=== PATIENT | male | born 1955 | race American Indian/Alaskan Native ===

== ENCOUNTER 2017-05-14 01:03 | Emergency (ER) | payer OTHER ==
[~2017-05-14] VITALS: Ht 190.5 cm; Wt 113.4 kg
[2017-05-14] MEDS ORDERED: AMBIEN5 MG PO (01:26)
[2017-05-14] MEDS ORDERED: LIPITOR40 MG PO (01:27)
[2017-05-14] MEDS ORDERED: METOPROLOL SUCC25 MG PO (01:28)
[2017-05-14] MEDS ORDERED: NITROSTAT0.4 MG SL (01:29)
[2017-05-14] MEDS ORDERED: ASPIR 8181 MG PO (01:29)
[2017-05-14] MEDS ORDERED: PROTONIX40 MG PO (01:30)
[2017-05-14] MEDS ORDERED: INDOMETHACIN50 MG PO (01:31)
[2017-05-14] MEDS ORDERED: PLAVIX75 MG PO (01:31)
[2017-05-14] MEDS ORDERED: LISINOPRIL20 MG PO (01:31)
[2017-05-14] MEDS ORDERED: ATIVAN1 MG PO (01:33)
--- NOTE | 2017-05-14 18:29 | EKG ---
[facility] [address] [facility] [place] [address] Signed Normal sinus rhythm Cannot rule out Anterior infarct , age undetermined Abnormal ECG No previous ECGs available Confirmed by MAYDA JOHNSON MD ([id number]) on 05/14/2017 6:29:28 PM Electronically Signed By: MAYDA JOHNSON MD 05/14/17 1829 PATIENT NAME: CHARLINE PETTIT Electrocardiogram DATE OF : 51 PHYSICIAN: MAYDA JOHNSON MD REPORT #: [id number] REPORT IS CONFIDENTIAL AND NOT TO BE RELEASED WITHOUT AUTHORIZATION
== END 2017-05-14 04:13 | disposition home or self-care (01) ==
LOC: ED 01:03
DX: R07.2 Precordial pain (principal); I10 Essential (primary) hypertension; I25.2 Old myocardial infarction; Z87.891 Personal history of nicotine dependence; Z79.899 Other long term (current) drug therapy; Z79.82 Long term (current) use of aspirin
CPT/HCPCS: 71010; 80053; 84484; 85025; 85610; 85730; 93005; 93010; 99284